=== PATIENT | female | born 1960 | race Caucasian/White ===

== ENCOUNTER 2016-09-02 08:27 | Outpatient (CLI) | payer OTHER, MEDICAID ==
[2016-09-02 09:13] LABS: eGFR (African) > 60; eGFR (Non-African) > 60
--- NOTE | 2016-09-02 21:42 | Diagnostic Imaging Report ---
KAUR CORADO [facility] [address] [facility].[address] [id number] Report Submission Date: September 02, 2016 12:00:39 PM CDT Patient Study Name: MORENA COLLIER Date: September 02, 2016 8:56:34 AM CDT Modality Type: US Gender: F Description: AAA SCREEN MEDICARE : 58 Institution: [facility] Physician: KAUR CORADO Screening ultrasound abdominal aorta Clinical history: Family history of abdominal aortic aneurysm. Technique: Real time sonography of the abdominal aorta is performed in transverse and longitudinal views. Findings: Proximal abdominal aorta measures 1.9 cm in greatest dimension. This tapers to 1.8 cm in the midportion and 1.7 cm distally. Proximal iliac vessels measure 9 mm in diameter. Impression: 1. Negative ultrasound of the abdominal aorta. Electronically signed on September 02, 2016 12:00:39 PM CDT by: Ford PIÑA
== END 2016-09-02 08:30 ==
LOC: RAD 08:27
PROVIDERS: ATTEND Family Medicine
DX: Z13.6 Encounter for screening for cardiovascular disorders (principal); E55.9 Vitamin D deficiency, unspecified; Z82.49 Family history of ischemic heart disease and other diseases of the circulatory system
CPT/HCPCS: 36415; 80053; 80061; 82306

== ENCOUNTER 2017-03-16 13:14 | Outpatient (CLI) | payer OTHER | END 2017-03-16 13:15 | LOC: CARD 13:14 | PROVIDERS: ATTEND Internal Medicine Cardiovascular Disease | DX: I45.10 Unspecified right bundle-branch block (principal); I10 Essential (primary) hypertension; Z72.0 Tobacco use; E66.9 Obesity, unspecified | CPT/HCPCS: G0463 ==

== ENCOUNTER 2018-07-20 13:56 | Outpatient (CLI) | payer OTHER, MEDICAID ==
[2018-07-20 14:14] LABS: MEAN CORPUSCULAR HEMOGLOBIN 31.9 pg (28.0-34.0)
[2018-07-20 14:15] LABS: BASOPHILS % 0.8 % (0.0-1.5); EOSINOPHILS % 2.4 % (0.0-6.8); MONOCYTES % 5.3 % (0.0-11.0)
[2018-07-20 14:32] LABS: eGFR (Non-African) > 60
== END 2018-07-20 14:15 ==
LOC: LAB 13:56
PROVIDERS: ATTEND Family Medicine
DX: Z11.59 Encounter for screening for other viral diseases (principal); R53.82 Chronic fatigue, unspecified; I10 Essential (primary) hypertension; E55.9 Vitamin D deficiency, unspecified; R10.84 Generalized abdominal pain
CPT/HCPCS: 36415; 80053; 80061; 82306; 82784; 84443; 85025; 86803